=== PATIENT | female | born 2000 | race Caucasian/White ===

== ENCOUNTER 2024-07-18 13:21 | Emergency (ER) | payer SELFPAY ==
[2024-07-18 13:26] VITALS: BP 132/89; PULSE 140; TEMP 37.1; O2SAT 99; BMI 21.3
[2024-07-18 13:43] LABS: Bilirubin Urine MODERATE (NEGATIVE); Blood Urine LARGE (NEGATIVE); Clarity Urine CLEAR (CLEAR); Glucose Urine UA NEGATIVE (NEGATIVE); Ketones Urine 15 mg/dL (NEGATIVE); Leukocyte Esterase Urine SMALL (NEGATIVE); Nitrite Urine NEGATIVE (NEGATIVE); Protein Urine >=300 mg/dL (NEG/TRACE); Specific Gravity Urine 1.025 (1.005-1.025); pH Urine 6.5 (5.0-9.0)
[2024-07-18 13:44] LABS: Color Urine BROWN (YELLOW)
--- NOTE | 2024-07-18 13:47 | ED.FEMALEGU1 ---
HPI - Female Genitourinary General Chief complaint: Urogenital-Female Stated complaint: UROGENTIAL BLEEDING Time Seen by Provider: 07/18/24 13:37 Source: patient and family Mode of arrival: walk-in Limitations: no limitations History of Present Illness HPI Narrative: Patient is a pleasant 24-year-old female who presents to the emergency department with her mother for the evaluation of abnormal vaginal bleeding. She states she has a history of irregular vaginal bleeding, she states she had a seminormal menstrual period in April. [facility] She states she was told that spotting would be normal but she has had an increase in bleeding over the last several days. She states she has some pelvic cramping but no severe pain. No flank pain or back pain. She states she had a negative test before and after her Depo shot. She is concerned that she may be as last night she passed a large clotted piece of tissue. Related Data Previous Rx's ?Medication ?Instructions ?Recorded cephalexin 500 mg capsule 500 mg PO Q8H 7 days #21 caps 07/18/24 ondansetron 4 mg disintegrating 4 mg PO Q6H PRN nausea and 07/18/24 tablet vomiting #12 tabs Allergies Allergy/AdvReac Type Severity Reaction Status Date / Time No Known Drug Allergies Allergy Verified 07/18/24 13:30 Review of Systems ROS Constitutional Denies: fever or chills Ears, nose, mouth, and throat Denies: throat pain or nasal congestion Cardiovascular Denies: chest pain Respiratory Denies: shortness of breath Gastrointestinal Reports: abdominal pain; Denies: nausea or vomiting Musculoskeletal Denies: back pain Integumentary/Breast Denies: rash Neurological Denies: numbness in extremities or weakness in extremities Hematologic/Lymphatic Denies: easy bruising or easy bleeding PFSH PFSH Social History Little interest or pleasure in doing things: not at all Feeling down, depressed, or hopeless: not at all Exam Narrative Exam Narrative: Gen.: Awake, alert, in no distress Head: Normocephalic, atraumatic ENT: Moist mucous membranes Respiratory: No respiratory distress, lungs clear bilaterally Cardio: Regular rate and rhythm Gastrointestinal: Abdomen is soft, nondistended and nontender to palpation Extremities: Moves extremities equally Psych: Normal mood and affect Neuro: No focal neuro deficit Skin: Warm, dry, intact Constitutional Vital Signs, click to edit/add: Last Vital Signs Temp 98.7 F 07/18/24 13:26 Pulse 140 H 07/18/24 13:26 Resp 18 07/18/24 13:26 BP 132/89 07/18/24 13:26 Pulse Ox 99 07/18/24 13:26 O2 Del Method Room Air 07/18/24 13:26 Course Vital Signs Vital signs: Vital Signs Temperature 98.7 F 07/18/24 13:26 Pulse Rate 140 H 07/18/24 13:26 Respiratory Rate 18 07/18/24 13:26 Blood Pressure 132/89 07/18/24 13:26 Pulse Oximetry 99 07/18/24 13:26 Oxygen Delivery Method Room Air 07/18/24 13:26 Temperature 98.7 F 07/18/24 13:26 Pulse Rate 140 H 07/18/24 13:26 Respiratory Rate 18 07/18/24 13:26 Blood Pressure 132/89 07/18/24 13:26 Pulse Oximetry 99 07/18/24 13:26 Oxygen Delivery Method Room Air 07/18/24 13:26 MDM - Female Genitourinary MDM Narrative Medical decision making narrative: Abdomen is soft and benign. Patient was anxious on arrival, she is calm and in no distress on reevaluation. She declined pain medication. Quantitative hCG level is less than 1, urine specimen shows a UTI. CBC is within normal limits. Patient was given education and reassurance. Follow-up with gynecology and return to the ER if symptoms change or worsen. Keflex and Zofran given for home. SUPERVISED APC VISIT, PHYSICIAN ATTESTATION: Based on the medical record the care appears appropriate. ? Medical Records Attestation: I reviewed the patient's medical records. Lab Data Attestation: I reviewed the patient's lab results. Labs: Lab Results 07/18/24 07/18/24 Range/Units 13:35 14:15 WBC 5.7 (4.0-11.0) 10^3/uL RBC 4.56 (4.20-5.40) 10^6/uL Hgb 14.6 (12.0-16.0) g/dL Hct 42.0 (36.0-48.0) % MCV 92.1 (81.0-99.0) fL MCH 32.0 (26.7-34.0) pg MCHC 34.8 (29.9-35.2) g/dL RDW 12.2 (11.0-15.0) % Plt Count 193 (150-450) 10^3/uL MPV 10.8 (9.5-13.5) fL Neut % (Auto) 69.7 (43.0-75.0) % Lymph % (Auto) 23.3 (20.5-60.0) % [place] % (Auto) 6.5 (1.7-12.0) % Eos % (Auto) 0.0 L (0.9-7.0) % Baso % (Auto) 0.3 (0.2-2.0) % Neut # (Auto) 4.0 (1.4-6.5) 10^3/uL Lymph # (Auto) 1.3 (1.2-3.8) 10^3/uL [place] # (Auto) 0.4 (0.3-0.8) 10^3/uL Eos # (Auto) 0.0 (0.0-0.7) 10^3/uL Baso # (Auto) 0.0 (0.0-0.1) 10^3/uL Abs Immat Gran (auto) 0.01 (0.00-0.03) 10^3/uL Imm/Tot Granulo (auto) 0.2 (0.0-0.5) % HCG, Quant <1 mIU/mL Urine Color Brown A (YELLOW) Urine Clarity Clear (CLEAR) Urine pH 6.5 (5.0-9.0) Ur Specific [place] 1.025 (1.005-1.025) Urine Protein >=300 A (NEG/TRACE) mg/dL Urine Glucose (UA) Negative (NEGATIVE) mg/dL Urine Ketones 15 A (NEGATIVE) mg/dL Urine Occult Blood Large A (NEGATIVE) Urine Nitrite Negative (NEGATIVE) Urine Bilirubin Moderate A (NEGATIVE) Urine Urobilinogen 4.0 A (0.2-1.0) EU/dL Ur Leukocyte Esterase Small A (NEGATIVE) Urine RBC 20-50 A (0-2) #/HPF Urine WBC 5-10 A (NONE SEEN) #/HPF Ur Squamous Epith Cells Few A (NONE/RARE) #/LPF Urine Crystals None seen (None Seen) #/HPF Urine Bacteria Small A (NONE SEEN) #/HPF Urine Casts Seen A (NONE SEEN) #/LPF Hyaline Casts Rare Urine Mucus Moderate A (NONE SEEN) Ur Culture Indicated? Yes-[facility] [place] Discharge Plan Discharge Chief Complaint: Urogenital-Female Clinical Impression: Urinary tract infection, Vaginal bleeding Patient Disposition: Home, Self-Care Time of Disposition Decision: 15:10 Condition: Good Prescriptions / Home Meds: New cephalexin 500 mg capsule 500 mg PO Q8H 7 Days Qty: 21 0RF ondansetron 4 mg tablet,disintegrating 4 mg PO Q6H PRN (Reason: nausea and vomiting) Qty: 12 0RF Print Language: Swedish Instructions: Medroxyprogesterone (By injection) (Depo-Provera, Depo-Provera..., Urinary Tract Infection in Women (ED) Referrals: Yogesh Leigh DO [Physician] - As needed Physician,Non-Staff, [Primary Care Provider] - 1 week
[2024-07-18 13:54] LABS: Mucus Urine MODERATE (NONE SEEN); Squamous Epithelial Cell Urine FEW #/LPF (NONE/RARE)
[2024-07-18 13:55] LABS: Bacteria Urine SMALL #/HPF (NONE SEEN); Cast Seen? SEEN #/LPF (NONE SEEN); Crystals Seen? None Seen #/HPF (None Seen); Hyaline Casts Urine RARE; RBC Urine 20-50 #/HPF (0-2)
[2024-07-18 13:56] LABS: Urine Culture Indicated YES-FRMC
[2024-07-18 14:20] LABS: Basophils Percent Auto 0.3 % (0.2-2.0); Hemoglobin 14.6 g/dL (12.0-16.0); Immature Granulocytes Abs Auto 0.01 10^3/uL (0.00-0.03); Immature Granulocytes Pct Auto 0.2 % (0.0-0.5); Lymphocytes Absolute Auto 1.3 10^3/uL (1.2-3.8); Lymphocytes Percent Auto 23.3 % (20.5-60.0); Mean Corpuscular HGB Conc 34.8 g/dL (29.9-35.2); Mean Corpuscular Volume 92.1 fL (81.0-99.0); Mean Platelet Volume 10.8 fL (9.5-13.5); Monocytes Absolute Auto 0.4 10^3/uL (0.3-0.8); Monocytes Percent Auto 6.5 % (1.7-12.0); Neutrophils Percent Auto 69.7 % (43.0-75.0); Platelet Count 193 10^3/uL (150-450); Red Blood Count 4.56 10^6/uL (4.20-5.40); Red Cell Distribution Width 12.2 % (11.0-15.0); White Blood Count 5.7 10^3/uL (4.0-11.0)
[2024-07-18 14:59] LABS: HCG Quantitative <1 mIU/mL
[2024-07-18 15:16] VITALS: BP 121/82; PULSE 89
== END 2024-07-18 15:22 | disposition home or self-care (01) ==
PROVIDERS: Physician Assistant; Emergency Provider Emergency Medicine; Family Provider Internal Medicine
DX: N39.0 Urinary tract infection, site not specified (principal); N93.9 Abnormal uterine and vaginal bleeding, unspecified
CPT/HCPCS: 36415; 81001; 84702; 85025; 87086; 99285